=== PATIENT | male | born 1980 | race African-American/Black ===

== ENCOUNTER → 2023-03-18 | Outpatient (CLI) | payer BC ==
--- NOTE | 2023-03-19 12:44 | CA ---
Transthoracic Echo Report Name: Everardo Do Age: 42 Gender: M : 1980 Exam Date: 03/18/2023 08:30 Exam Location: [facility] Ht (in): 70 Wt (lb): 240 Ordering Physician: Giorgio Camarillo DO Attending/Referring Phys: Paralegals Krystle Niño RDCS Procedure CPT: Indications: R00.0 tachycardia Cardiac Hx: Technical Quality: Good Contrast 1: Total Dose (mL): Contrast 2: Total Dose (mL): MEASUREMENTS (Male / Female) Normal Values 2D ECHO LV Diastolic Diameter PLAX 5.0 cm 4.2 - 5.9 / 3.9 - 5.3 cm LV Systolic Diameter PLAX 3.2 cm IVS Diastolic Thickness 1.1 cm 0.6 - 1.0 / 0.6 - 0.9 cm LVPW Diastolic Thickness 1.1 cm 0.6 - 1.0 / 0.6 - 0.9 cm LV Relative Wall Thickness 0.4 RV Internal Dim ED PLAX 3.6 cm LA Systolic Diameter LX 3.8 cm 3.0 - 4.0 / 2.7 - 3.8 cm LV Diastolic Volume MOD BP 114.6 cm??? 67 - 155 / 56 - 104 cm??? LV Systolic Volume MOD BP 43.6 cm??? 22 - 58 / 19 - 49 cm??? LV Ejection Fraction MOD BP 62.0 % >= 55 % LV Cardiac Index MOD BP 1627.8 cm???/min???m??? LV Diastolic Volume MOD 4C 124.3 cm??? LV Systolic Volume MOD 4C 56.6 cm??? LV Ejection Fraction MOD 4C 54.4 % LV Cardiac Index MOD 4C 1550.7 cm???/min???m??? LV Diastolic Length 4C 8.5 cm LV Systolic Length 4C 7.6 cm LV Diastolic Volume MOD 2C 91.6 cm??? LV Systolic Volume MOD 2C 25.4 cm??? LV Ejection Fraction MOD 2C 72.3 % LV Cardiac Index MOD 2C 1516.3 cm???/min???m??? LV Diastolic Length 2C 7.3 cm LV Systolic Length 2C 5.6 cm LA Volume 56.8 cm??? 18 - 58 / 22 - 52 cm??? M-MODE Aortic Root Diameter MM 3.6 cm MV E Point Septal Separation 0.2 cm AV Cusp Separation MM 2.6 cm DOPPLER AV Peak Velocity 135.8 cm/s AV Peak Gradient 7.4 mmHg MV Area PHT 3.7 cm??? Mitral E Point Velocity 109.5 cm/s Mitral A Point Velocity 62.8 cm/s Mitral E to A Ratio 1.7 MV Deceleration Time 203.3 ms TR Peak Velocity 198.0 cm/s TR Peak Gradient 15.7 mmHg Right Ventricular Systolic Press 20.1 mmHg FINDINGS Left Ventricle Left ventricular ejection fraction is estimated at 55-60 %. Left ventricular cavity size normal. Left ventricular wall thickness normal. Normal left ventricular wall motion. Right Ventricle Mild right ventricular dilatation. Right ventricular systolic pressure within normal limits. Right Atrium Normal right atrial size. Left Atrium Normal left atrial size. Mitral Valve Structurally normal mitral valve. Mild mitral regurgitation. Aortic Valve Trileaflet aortic valve. No aortic valve stenosis or regurgitation. Tricuspid Valve Structurally normal tricuspid valve. Trace to mild tricuspid regurgitation. Pulmonic Valve Structurally normal pulmonic valve. Mild pulmonic regurgitation. Pericardium Normal pericardium. No pericardial effusion. Aorta Normal size aortic root and proximal ascending aorta. CONCLUSIONS Normal LV systolic function Mild mitral regurgitation Previewed by: Dr. Eris Murphy MD (Electronically Signed) Final Date: 19 March 2023 12:43
== END | disposition home or self-care (01) ==
LOC: RADECHMAIN 08:18
PROVIDERS: ATTEND Family Medicine
DX: I08.1 Rheumatic disorders of both mitral and tricuspid valves (principal); R00.0 Tachycardia, unspecified
CPT/HCPCS: 93306